=== PATIENT | male | born 1990 | race Two or more races ===

== ENCOUNTER 2022-02-07 13:05 | Emergency (ER) | payer OTHER ==
[~2022-02-07] VITALS: Ht 175.3 cm; Wt 90.7 kg
[2022-02-07 13:11] VITALS: BP 119/75
[2022-02-07] MEDS ORDERED: HYDROCODONE/APAP 5/325MG TABLET ONE (13:54)
[2022-02-07] MEDS ORDERED: MORPHINE SULFATE INJ 4 MG/ML DISP.SYRIN ONE (13:58)
[2022-02-07] MEDS ORDERED: MORPHINE SULFATE INJ 2 MG/ML DISP.SYRIN IM ONE ×2 (14:00→14:30)
[2022-02-07] MEDS ORDERED: HYDROCODONE/APAP 5/325MG TABLET PO ONE (14:00)
[2022-02-07] MEDS ORDERED: TDAP [DIPH/PERTUSSIS/TET] 0.5 ML VIAL IM ONE (14:30)
[2022-02-07] MEDS ORDERED: BACI/NEOM/POLY B OINT PKT 1 UDPKT PACKET TP ONE (14:30)
[2022-02-07] MEDS ORDERED: IBUP-1955 PO (14:36)
--- NOTE | 2022-02-07 14:41 | NUR ---
Patient discharged to [facility] in stable condition. Written and verbal after care instructions given. Patient verbalizes understanding of instruction.
== END 2022-02-07 14:42 ==
LOC: ER 13:33
DX: S63.610A Unspecified sprain of right index finger, initial encounter (principal); S60.511A Abrasion of right hand, initial encounter; W22.8XXA Striking against or struck by other objects, initial encounter; Y93.89 Activity, other specified; Y92.89 Other specified places as the place of occurrence of the external cause; Y99.8 Other external cause status
CPT/HCPCS: 73130; 96372; 99283; J2270